=== PATIENT | female | born 1950 | race Asian ===

== ENCOUNTER → 2018-07-25 | Outpatient (CLI) | payer MEDICARE, MEDICAID ==
[2018-07-25 12:48] LABS: ALBUMIN 4.3 g/dL (3.4-5.0); CALCIUM, TOTAL 10.3 mg/dL (8.8-10.5); CREATININE 1.3 mg/dL (0.60-1.30); PHOSPHORUS 3.2 mg/dL (2.5-4.9); POTASSIUM 4.7 mmol/L (3.5-5.1); URIC ACID 7.6 mg/dL (2.6-7.2)
[2018-07-25 12:52] LABS: HEMOGLOBIN A1C 7.8 % (4.5-6.2)
[2018-07-25 13:49] LABS: PROTEIN,URINE RANDOM 48 mg/dL (0-11.9)
[2018-07-25 14:08] LABS: GLUCOSE, URINE (UA) NEGATIVE (NEGATIVE); KETONES,URINE TRACE mg/dL (NEGATIVE); NITRATE,URINE NEGATIVE (NEGATIVE); OCCULT BLOOD,URINE NEGATIVE (NEGATIVE); PH,URINE 5.5 (5.0-8.0); PROTEIN,URINE TRACE (NEGATIVE)
[2018-07-25 14:44] LABS: APPEARANCE,URINE HAZY (CLEAR); BILIRUBIN,URINE PRELIM. POSITIVE (NEGATIVE)
[2018-07-25 14:45] LABS: LEUKOCYTE ESTERASE ,URINE TRACE (NEGATIVE); RBC,URINE 0-2 /HPF (0-2); WBC,URINE 0-2 /HPF (0-5)
[2018-07-25 14:46] LABS: BACTERIA,URINE Few /HPF (None Seen); FINE GRANULAR CASTS,URINE 0-2 /LPF (None Seen); SQUAMOUS EPITHELIAL CELL,UR Moderate /LPF (None Seen)
== END | disposition home or self-care (01) ==
LOC: LABPV 11:38
PROVIDERS: ATTEND Hospitalist
DX: E55.9 Vitamin D deficiency, unspecified (principal); E11.22 Type 2 diabetes mellitus with diabetic chronic kidney disease; N18.2 Chronic kidney disease, stage 2 (mild); E83.52 Hypercalcemia; N17.9 Acute kidney failure, unspecified
CPT/HCPCS: 82043; 82306; 82570; 83036; 83970; 84156; 84550